=== PATIENT | female | born 1950 | race Caucasian/White ===

== ENCOUNTER 2022-07-24 02:54 | Observation (INO) | payer MEDICARE, BC, SELFPAY ==
[2022-07-24] VITALS (9 sets, daily range): BP systolic 129–217; BP diastolic 68–122; PULSE 63–90; RESP 16–34; TEMP 36.4–36.6; O2SAT 87–99; BMI 18.6
--- NOTE | 2022-07-24 03:03 | ECG_ITS ---
[facility] Test Date: 2022-07-24 Pat Name: Pau Grant Department: Room: Gender: Female Production Editor: : 1950 Requested By: Jamie Wilson Order Number: [id number] Mena MD: Murali Tello M.D. Measurements Intervals [place] Rate: 81 P: 79 LA: 124 QRS: 66 QRSD: 102 T: 66 QT: 389 QTc: 452 Interpretive Statements SINUS RHYTHM POSSIBLE LEFT ATRIAL ENLARGEMENT [-0.1mV P-WAVE IN V1/V2] MODERATE ST DEPRESSION [0.05+ mV ST DEPRESSION] No previous ECG available for comparison Electronically Signed On 07-25-2022 22:03:57 CDT by Murali Tello M.D. [email or web address]
--- NOTE | 2022-07-24 03:04 | XRR_ITS ---
PROCEDURE INFORMATION: Exam: XR Chest Exam date and time: 07/24/2022 3:08 AM Age: 71 years old Clinical indication: Shortness of breath; Patient HX: C/O SOB with cough and chest discomfort. Recent hospitilization for chf at outside facility. TECHNIQUE: Imaging protocol: Radiologic exam of the chest. Views: 1 view. COMPARISON: No relevant prior studies available. FINDINGS: Lungs: Unremarkable. No consolidation. Pleural spaces: Unremarkable. No pleural effusion. No pneumothorax. Heart/Mediastinum: Unremarkable. No cardiomegaly. Bones/joints: Unremarkable. XR/XR chest 1V portable [id number] IMPRESSION: No acute findings.
[2022-07-24 03:12] LABS: Basophils # 0.1 10^3/uL (0.0-0.1); Basophils % 0.6 %; Hematocrit 46.7 % (37.0-47.0); Hemoglobin 15.6 g/dL (11.5-15.3); Lymphocytes # 4.3 10^3/uL (0.8-4.8); Lymphocytes % 27.1 %; Mean Corpuscular HGB Conc 33.4 g/dL (30.0-36.0); Mean Corpuscular Hemoglobin 31.5 pg (28.0-34.0); Mean Corpuscular Volume 94.3 fl (81-99); Mean Platelet Volume 11.1 fL (7.4-10.4); Monocytes # 1.4 10^3/uL (0.2-0.9); Monocytes % 9.1 %; Neutrophils # 6.92 10^3/uL (1.8-7.7); Neutrophils % 43.5 %; Nucleated Red Blood Cells % 0 %; Platelet Count 275 10^3/cmm (130-400); Red Blood Count 4.95 10^6/uL (4.1-5.3); Red Cell Distribution Width 12.7 % (12.1-15.1); White Blood Count 15.9 10^3/uL (4.0-10.0)
[2022-07-24] MEDS: FUROsemide 10 mg/mL SDV 4mL 40 MG IVP (03:12)
[2022-07-24] MEDS: magnesium sulfate premix 2 GM/50 ML PIGGYBACK IV (03:12)
[2022-07-24] MEDS: ipratropium-albuterol 3 mL Neb INHALATION ×3 (03:16→12:20)
[2022-07-24 03:26] LABS: ABG PCO2 43.8 mmHg (35-45); ABG PH Result 7.41 (7.35-7.45); Arterial Blood Gas Hematocrit 47.2 % (37-47); Base Excess ABG 2.8 mmol/L (-2.0-2.0); Blood Gas Allen Test Pos; Blood Gas Sample Type Arterial; Carboxyhemoglobin 1.4 %THgb (0.4-20.1); HGB O2 Sat 92.6 % (95-100); Methemoglobin 0.7 % (0.4-1.5); PO2 ABG 68.4 mmHg (80.0-100.0); Total Hemoglobin 15.4 g/dL (12-16)
[2022-07-24 03:27] LABS: Blood Gas Operator Identificat MONRO; Blood Gas Sample Site Radial, left; Oxygen Device NC
[2022-07-24 03:33] LABS: Lactic Sepsis W/Reflex 1.1 mmol/L (0.5-2.2)
[2022-07-24 03:42] LABS: Alanine Aminotransferase 20 U/L (0-33); Albumin Level 4.4 g/dL (3.5-5.2); Alkaline Phosphatase 86 U/L (35-105); Anion Gap 14.2 (5-19); Aspartate Amino Transferase 21 U/L (0-32); Blood Urea Nitrogen 12 mg/dL (8-23); Calcium 9.8 mg/dL (8.5-10.5); Carbon Dioxide 27 mmol/L (22-29); Chloride 98 mmol/L (98-107); Globulin 2.9 g/dL (1.3-4.6); Glomerular Filtration Rate 98.8 mL/min (90-130); Glucose 127 mg/dL (65-115); Magnesium 2.1 mg/dL (1.7-2.3); NT Pro B Type Natriuretic Pept 133 pg/mL (0-125); Osmolality Calculated 283 mOsm/kg (285-295); Potassium 3.2 mmol/L (3.5-5.1); Sodium 136 mmol/L (136-145); Total Bilirubin 0.6 mg/dL (0.15-1.2); Total Protein 7.3 g/dL (6.6-8.7)
--- NOTE | 2022-07-24 04:09 | ED_ITS ---
HPI - SOB/Dyspnea General: Chief Complaint: Shortness of Breath/Dyspnea Stated Complaint: sob Time Seen by Provider: 07/24/22 03:02 Source: patient History of Present Illness: HPI Narrative: 71-year-old female with a history of COPD. She presents in respiratory distress. She is visiting from [place] this weekend because of a wedding. She began to get short of breath earlier in the evening, and it progressively worsened. She has been coughing. No significant sputum production. No fever. She had been hospitalized in [facility] which is her home last week for similar symptoms. She was placed on albuterol, prednisone, and some other medications. She just finished her prednisone. She does not normally use oxygen. MD elicited complaint: shortness of breath and cough Pertinent past history: COPD and congestive heart failure Context: recent illness Timing: constant and progressively worsening Severity: severe Exacerbating factors: lying flat and exertion Relieving factors: oxygen Known history of: COPD and congestive heart failure Associated symptoms: Reports chest congestion, cough and dizziness; Deny abdominal pain, chest pain, fever(s), nausea or vomiting Treatment prior to arrival: bronchodilator Review of Systems Const: Denies: fever(s) Card: Denies: chest pain Resp: Reports: dyspnea, non-productive cough, wheezing and chest congestion GI: Denies: abdominal pain, nausea or vomiting Neuro: Reports: dizziness Physical Exam Const: GENERAL APPEARANCE: cooperative, in distress, ill appearing and frail appearing HENMT: COMMON NORMALS: normocephalic, atraumatic and Normal external nose present HEAD & SCALP: normocephalic and atraumatic NOSE: Normal external nose present Eye: COMMON NORMALS: Equal, round and reactive pupils present and EOMs intact bilaterally PUPIL: Yes Equal, round and reactive pupils present Chest: CHEST: Yes Symmetrical chest wall rise Resp: EFFORT & INSPECTION: Yes respiratory distress, Yes pursed lip breathing and Yes uses accessory muscles AUSCULTATION: wheezes and diminished lung sounds Cardio: COMMON NORMALS: regular rate and regular rhythm RATE: regular rate RHYTHM: regular rhythm GI: COMMON NORMALS: Normal to inspection, nondistended, normoactive bowel sounds present and Soft to palpation PALPATION: Yes Soft to palpation Extremity: COMMON NORMALS: no pedal edema Neuro: SHANTA COMA SCALE: document GCS findings Shanta coma scale eye opening: Spontaneous Shanta coma scale verbal response: Orientated Shanta coma scale motor response: Obey commands [place] coma scale total score: 15 Psych: COMMON NORMALS: mental status grossly normal and cooperative Course Vital Signs: Vital signs: Vital Signs Temperature 97.9 F 07/24/22 03:03 Pulse Rate 69 07/24/22 03:38 Respiratory Rate 21 H 07/24/22 03:38 Blood Pressure 137/71 07/24/22 03:38 Pulse Oximetry 93 07/24/22 03:38 Oxygen Delivery Me thod 07/24/22 03:38 Oxygen Flow Rate 4 07/24/22 03:38 MDM - SOB/Dyspnea Medical Decision Making 71-year-old female with acute COPD exacerbation. On room air, she was in the mid 80s, breathing 40 times a minute on arrival. She sounded very tight and wheezy. She was placed on oxygen, given magnesium, steroids, and nebulizer treatment with improvement. She still oxygen dependent. Her saturations 92%. Blood pressure 137/62. Originally she was quite hypertensive at 217 systolic. Her white blood cell count is 16. Hemoglobin 15. Chest x-ray shows emphysematous changes, but without infiltrate. She will be observed for COPD exacerbation. Hospitalist is aware and will see patient in the ER. Lab Data : 07/24/22 03:06 07/24/22 03:06 Labs/Radiology: Laboratory Results WBC 15.9 10^3/uL (4.0-10.0) H 07/24/22 03:06 RBC 4.95 10^6/uL (4.1-5.3) 07/24/22 03:06 Hgb 15.6 g/dL (11.5-15.3) H 07/24/22 03:06 Hct 46.7 % (37.0-47.0) 07/24/22 03:06 MCV 94.3 fl (81-99) 07/24/22 03:06 MCH 31.5 pg (28.0-34.0) 07/24/22 03:06 MCHC 33.4 g/dL (30.0-36.0) 07/24/22 03:06 RDW 12.7 % (12.1-15.1) 07/24/22 03:06 Plt Count 275 10^3/cmm (130-400) 07/24/22 03:06 MPV 11.1 fL (7.4-10.4) H 07/24/22 03:06 Neut % (Auto) 43.5 % 07/24/22 03:06 Lymph % (Auto) 27.1 % 07/24/22 03:06 [place] % (Auto) 9.1 % 07/24/22 03:06 Eos % (Auto) 19.0 % 07/24/22 03:06 Baso % (Auto) 0.6 % 07/24/22 03:06 Neut # (Auto) 6.92 10^3/uL (1.8-7.7) 07/24/22 03:06 Lymph # (Auto) 4.3 10^3/uL (0.8-4.8) 07/24/22 03:06 [place] # (Auto) 1.4 10^3/uL (0.2-0.9) H 07/24/22 03:06 Eos # (Auto) 3.0 10^3/uL (0.0-0.8) H 07/24/22 03:06 Baso # (Auto) 0.1 10^3/uL (0.0-0.1) 07/24/22 03:06 Nucleated RBC % (auto) 0 % 07/24/22 03:06 Nucleated RBCs # 0.0 /100WBC 07/24/22 03:06 Specimen Type Arterial 07/24/22 03:14 Sample Site Radial, left 07/24/22 03:14 ABG pH 7.41 (7.35-7.45) 07/24/22 03:14 ABG pCO2 43.8 mmHg (35-45) 07/24/22 03:14 ABG pO2 68.4 mmHg (80.0-100.0) L 07/24/22 03:14 ABG HCO3 28.0 mmol/L (22-26) H 07/24/22 03:14 ABG Base Excess 2.8 mmol/L (-2.0-2.0) H 07/24/22 03:14 Douglas Test Pos 07/24/22 03:14 Hematocrit 47.2 % (37-47) H 07/24/22 03:14 Hgb O2 Saturation 92.6 % (95-100) L 07/24/22 03:14 Carboxyhemoglobin 1.4 %THgb (0.4-20.1) 07/24/22 03:14 Methemoglobin 0.7 % (0.4-1.5) 07/24/22 03:14 Total Hemoglobin 15.4 g/dL (12-16) 07/24/22 03:14 O2 Delivery Device Nc 07/24/22 03:14 O2 Liters/Min 3.0 % 07/24/22 03:14 FiO2 32.0 % 07/24/22 03:14 Sales Promotion Representative ID Omid 07/24/22 03:14 Sodium 136 mmol/L (136-145) 07/24/22 03:06 Chloride 98 mmol/L (98-107) 07/24/22 03:06 Carbon Dioxide 27 mmol/L (22-29) 07/24/22 03:06 Anion Gap 14.2 (5-19) 07/24/22 03:06 BUN 12 mg/dL (8-23) 07/24/22 03:06 Creatinine 0.6 mg/dL (0.5-0.9) 07/24/22 03:06 GFR Calculation 98.8 mL/min (90-130) 07/24/22 03:06 Lactic Acid 1.1 mmol/L (0.5-2.2) 07/24/22 03:06 Calcium 9.8 mg/dL (8.5-10.5) 07/24/22 03:06 Magnesium 2.1 mg/dL (1.7-2.3) 07/24/22 03:06 Total Bilirubin 0.6 mg/dL (0.15-1.2) 07/24/22 03:06 AST 21 U/L (0-32) 07/24/22 03:06 ALT 20 U/L (0-33) 07/24/22 03:06 Alkaline Phosphatase 86 U/L (35-105) 07/24/22 03:06 Total Protein 7.3 g/dL (6.6-8.7) 07/24/22 03:06 Albumin 4.4 g/dL (3.5-5.2) 07/24/22 03:06 Globulin 2.9 g/dL (1.3-4.6) 07/24/22 03:06 Discharge Plan Discharge Patient Disposition: Placed in Observation Clinical Impression: Acute exacerbation of chronic obstructive airways disease Coding Level of Care Code ED Live Source Operator for Chg Fwd
--- NOTE | 2022-07-24 04:41 | P.HP_ITS ---
Providers/Chief Complaint Chief Complaint: sob History of Present Illness Pau Grant is a 71 year old female with past medical history of COPD not on home oxygen came in today with chief complaint of worsening shortness of breath, nonproductive cough, started yesterday morning and since then it has progressively worsened, she denies chest pain, fever, nausea vomiting, headache. she was admitted recently with similar complaints and was treated with nebs, steroids, she completed 5-day course of oral steroids as outpatient. X-ray chest done in the ER: No acute infiltrates, no pneumothorax no effusion changes consistent with COPD. Pertinent labs: WBC 15.9, H&H 15 and 46, PLT : 275 , sodium 136 potassium 3.2, BUN serum creatinine 12/ 0.6 , proBNP 133 Patient received steroids, nebs in the ER Review of Systems General: Reports: 10 or more systems reviewed and unremarkable except in HPI and below Const: Denies: fever(s), chills, body aches, change in appetite or diaphoresis Card: Denies: palpitations, edema, swelling of feet/ankles or leg pain with exertion Resp: Reports: dyspnea and wheezing; Denies: pain on inspiration GI: Denies: abdominal pain, nausea, vomiting, diarrhea or constipation : Denies: flank pain Musc: Denies: back pain, extremity pain or extremity swelling Neuro: Denies: headache(s), difficulty walking or confusion Medications/Allergies Allergies Allergy/AdvReac Type Severity Reaction Status Date / Time Unable to Assess Allergy Unverified 07/24/22 03:03 Vitals/I&O/Wt Last Vital Signs Temp 97.9 F 07/24/22 03:03 Pulse 69 07/24/22 03:38 Resp 21 H 07/24/22 03:38 BP 137/71 07/24/22 03:38 Pulse Ox 93 07/24/22 03:38 O2 Del Method 07/24/22 03:38 O2 Flow Rate 4 07/24/22 03:38 Weight last 48 hrs Weight 52.163 kg Physical Exam Const: COMMON NORMALS: patient oriented x3 Resp: EFFORT & INSPECTION: Yes symmetric chest movement Cardio: COMMON NORMALS: regular rate, regular rhythm, S1 normal heart sound present, S2 normal heart sound present, No gallops present (Cardio), No murmurs present (Cardio), No rub (Cardio) and Peripheral pulses 2+ throughout RATE: regular rate RHYTHM: regular rhythm HEART SOUNDS: S1 normal heart sound present and S2 normal heart sound present PERIPHERAL PULSES: Peripheral pulse s 2+ throughout GI: COMMON NORMALS: Normal to inspection, nondistended, normoactive bowel sounds present, Soft to palpation, non-tender, No hepatosplenomegaly present and no masses AUSCULTATION: Yes normoactive bowel sounds PALPATION: Yes Soft to palpation and Yes No hepatosplenomegaly present RECTAL EXAM: deferred Extremity: COMMON NORMALS: no clubbing, cyanosis or edema and no pedal edema Neuro: COMMON NORMALS: patient oriented x3 Data : 07/24/22 03:06 07/24/22 03:06 A&P Assessment and plan (1) Acute exacerbation of chronic obstructive airways disease: (2) Leukocytosis: (3) Hypokalemia: (4) Hypoxia: Plan 71 year old female with past medical history of COPD not on home oxygen came in today with chief complaint of worsening shortness of breath, nonproductive cough, started yesterday morning. Assessment: COPD exacerbation Leukocytosis likely secondary to recent steroid use Hypokalemia Hypoxia Plan: Continue DuoNebs Continues to Solu-Medrol Supplemental oxygen as needed CODE STATUS: Full code DVT prophylaxis: On Lovenox Attestations Medical Necessity Statement*: Patient needs to be in hospital management of COPD exacerbation. Time Spent in Patient Care: Greater than 35 minutes (>than 50% of time spent in counselling and/or direct pt care on unit) . Coding Level of Care Code Acute Sales Service Promoter for Will Fwd Exam Detailed Diagnoses Acute exacerbation of chronic obstructive airways disease J44.1 Leukocytosis D72.829 Hypokalemia E87.6 Hypoxia R09.02
[2022-07-24 05:05] LABS: Adenovirus Not Detected (NOT DETECT); Chlamydia Pneumoniae Not Detected (NOT DETECT); Coronavirus 229E,HKU1,NL63,OC4 Not Detected (NOT DETECT); Human Metapneumovirus Not Detected (NOT DETECT); Human Rhinovirus/Enterovirus Not Detected (NOT DETECT); Influenza A Not Detected (NOT DETECT); Influenza A H1 Not Detected (NOT DETECT); Influenza A H1-2009 Not Detected (NOT DETECT); Influenza A H3 Not Detected (NOT DETECT); Influenza B Not Detected (NOT DETECT); Mycoplasma Pneumoniae Not Detected (NOT DETECT); Parainfluenza Virus Type 1 Not Detected (NOT DETECT); Parainfluenza Virus Type 2 Not Detected (NOT DETECT); Parainfluenza Virus Type 3 Not Detected (NOT DETECT); Parainfluenza Virus Type 4 Not Detected (NOT DETECT); Respiratory Syncytial Virus A Not Detected (NOT DETECT); Respiratory Syncytial Virus B Not Detected (NOT DETECT); SARS-COV-2 Not Detected (NOT DETECT)
[2022-07-24] MEDS: potassium chloride ER 20 mEq Tablet PO (05:23)
[2022-07-24] MEDS: losartan 50 mg Tablet 25 MG PO (11:48)
[2022-07-24] MEDS: amlodipine 5 mg Tablet PO (11:48)
--- NOTE | 2022-07-24 12:18 | P.DS_ITS ---
Discharge Providers Date of Admission: 07/24/22 04:52 Date of Discharge: July 24, 2022 Attending Provider at Admission: Sam Jeffrey MD Attending Provider at Discharge: Sylvia Bowman MD Diagnoses at Discharge Discharge Diagnosis (1) Acute exacerbation of chronic obstructive airways disease: Status: Acute (2) Leukocytosis: Status: Acute (3) Hypokalemia: Status: Acute (4) Hypoxia: Status: Acute Reason for Visit Reason for Visit: sob Brief History: Pau Grant is a 71 year old female with past medical history of COPD not on home oxygen came in today with chief complaint of worsening shortness of breath, nonproductive cough, started yesterday morning and since then it has progressively worsened, she denies chest pain, fever, nausea vomiting, headache. she was admitted recently with similar complaints and was treated with nebs, steroids, she completed 5-day course of oral steroids as outpatient. X-ray chest done in the ER: No acute infiltrates, no pneumothorax no effusion changes consistent with COPD. Pertinent labs: WBC 15.9, H&H 15 and 46, PLT : 275 , sodium 136 potassium 3.2, BUN serum creatinine 12/ 0.6 , proBNP 133 Patient received steroids, nebs in the ER Hospital Course Hospital Course Patient admitted for presumed COPD exacerbation. She was recently in the hospital for 1 and was treated with 5 days of steroids. She had recent COVID. Patient stated that she took her albuterol inhaler and felt that she had air hunger. In the ER she received Solu-Medrol and was placed on Solu-Medrol 60 twice daily. Today when seen she was asymptomatic and said that she was back to normal. Normally she says she takes albuterol before she exercises. She is very active and exercises 3 times a week. She did have PFTs done early this year in January which showed mild COPD/emphysema. She has been not on any other medications at home. She states she is struggled with high blood pressure for a long time and finally her blood pressure has been stable with the losartan and amlodipine that was given to her. 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 She said that she is allergic to a lot of medications and would not like to be on any new meds without consultation with her primary care provider at this time. Patient agreed to take prednisone as an outpatient and albuterol inhaler and Spiriva at this time. Home oxygen evaluation was done and she does not qualify for any oxygen at this time. She also stated that if she had qualified for oxygen she would not be interested taking at home. Patient stated that she would like to see her primary care doctor on Tuesday and will discuss further medication changes. In the meantime I will place her on a prednisone taper. Patient requested to be discharged home. Both of her daughters were present at bedside. She was asymptomatic. She denied cough, increased sputum or change in color of sputum or have any sputum at all at this time. She possibly had bronchospasm secondary to anxiety at the time when she presented to the ER. All questions were answered. Discharge I spent greater than 20 minutes with patient and her family today at bedside and answered all her questions. Patient will be discharged home in stable condition. Patient on room air. Mild leukocytosis most likely secondary to recent steroid use. She was afebrile no signs of infection. Patient will return to ER if she worsens for any symptoms started. Physical Exam Narrative: General: Alert oriented x3, patient seen sitting up in bed appearing comfortable at this time. HEENT: Normocephalic, atraumatic, EOMI, breathing normally, no acute distress Cardio: Regular rate rhythm, normal S1-S2, Respiratory: Good bilateral air entry, no wheezes no rhonchi appreciated, clear to auscultation GI: Abdomen soft, nontender, nondistended, bowel sounds + Behavior: Appropriate and cooperative Extremities: No lower extremity edema Discharge Data Studies Completed and Pending Completed Studies During Hospitalization Category Date Time Status XR chest 1V portable [id number] Stat Exams 07/24/22 03:04 Completed Pending at discharge Category Date Time Status Basic Metabolic Panel AM LABS Lab 07/25/22 04:00 Ordered Basic Metabolic Panel AM LABS Lab 07/26/22 04:00 Ordered Basic Metabolic Panel AM LABS Lab 07/27/22 04:00 Ordered Blood Culture Stat Lab 07/24/22 07:45 Results Complete Blood Count w/Auto AM LABS Lab 07/25/22 04:00 Ordered Complete Blood Count w/Auto AM LABS Lab 07/26/22 04:00 Ordered Complete Blood Count w/Auto AM LABS Lab 07/27/22 04:00 Ordered Procalcitonin AM LABS Lab 07/25/22 04:00 Ordered Radiology Impressions Chest X-Ray 07/24/22 03:04 IMPRESSION: No acute findings. Laboratory Results WBC 15.9 10^3/uL (4.0-10.0) H 07/24/22 03:06 RBC 4.95 10^6/uL (4.1-5.3) 07/24/22 03:06 Hgb 15.6 g/dL (11.5-15.3) H 07/24/22 03:06 Hct 46.7 % (37.0-47.0) 07/24/22 03:06 MCV 94.3 fl (81-99) 07/24/22 03:06 MCH 31.5 pg (28.0-34.0) 07/24/22 03:06 MCHC 33.4 g/dL (30.0-36.0) 07/24/22 03:06 RDW 12.7 % (12.1-15.1) 07/24/22 03:06 Plt Count 275 10^3/cmm (130-400) 07/24/22 03:06 MPV 11.1 fL (7.4-10.4) H 07/24/22 03:06 Neut % (Auto) 43.5 % 07/24/22 03:06 Lymph % (Auto) 27.1 % 07/24/22 03:06 [place] % (Auto) 9.1 % 07/24/22 03:06 Eos % (Auto) 19.0 % 07/24/22 03:06 Baso % (Auto) 0.6 % 07/24/22 03:06 Neut # (Auto) 6.92 10^3/uL (1.8-7.7) 07/24/22 03:06 Lymph # (Auto) 4.3 10^3/uL (0.8-4.8) 07/24/22 03:06 [place] # (Auto) 1.4 10^3/uL (0.2-0.9) H 07/24/22 03:06 Eos # (Auto) 3.0 10^3/uL (0.0-0.8) H 07/24/22 03:06 Baso # (Auto) 0.1 10^3/uL (0.0-0.1) 07/24/22 03:06 Nucleated RBC % (auto) 0 % 07/24/22 03:06 Nucleated RBCs # 0.0 /100WBC 07/24/22 03:06 Specimen Type Arterial 07/24/22 03:14 Sample Site Radial, left 07/24/22 03:14 ABG pH 7.41 (7.35-7.45) 07/24/22 03:14 ABG pCO2 43.8 mmHg (35-45) 07/24/22 03:14 ABG pO2 68.4 mmHg (80.0-100.0) L 07/24/22 03:14 ABG HCO3 28.0 mmol/L (22-26) H 07/24/22 03:14 ABG Base Excess 2.8 mmol/L (-2.0-2.0) H 07/24/22 03:14 Douglas Test Pos 07/24/22 03:14 Hematocrit 47.2 % (37-47) H 07/24/22 03:14 Hgb O2 Saturation 92.6 % (95-100) L 07/24/22 03:14 Carboxyhemoglobin 1.4 %THgb (0.4-20.1) 07/24/22 03:14 Methemoglobin 0.7 % (0.4-1.5) 07/24/22 03:14 Total Hemoglobin 15.4 g/dL (12-16) 07/24/22 03:14 O2 Delivery Device Nc 07/24/22 03:14 O2 Liters/Min 3.0 % 07/24/22 03:14 FiO2 32.0 % 07/24/22 03:14 Production Sound Mixer ID [place] 07/24/22 03:14 Sodium 136 mmol/L (136-145) 07/24/22 03:06 Potassium 3.2 mmol/L (3.5-5.1) L 07/24/22 03:06 Chloride 98 mmol/L (98-107) 07/24/22 03:06 Carbon Dioxide 27 mmol/L (22-29) 07/24/22 03:06 Anion Gap 14.2 (5-19) 07/24/22 03:06 BUN 12 mg/dL (8-23) 07/24/22 03:06 Creatinine 0.6 mg/dL (0.5-0.9) 07/24/22 03:06 GFR Calculation 98.8 mL/min (90-130) 07/24/22 03:06 Glucose 127 mg/dL (65-115) H 07/24/22 03:06 Calculated Osmolality 283 mOsm/kg (285-295) L 07/24/22 03:06 Lactic Acid 1.1 mmol/L (0.5-2.2) 07/24/22 03:06 Calcium 9.8 mg/dL (8.5-10.5) 07/24/22 03:06 Magnesium 2.1 mg/dL (1.7-2.3) 07/24/22 03:06 Total Bilirubin 0.6 mg/dL (0.15-1.2) 07/24/22 03:06 AST 21 U/L (0-32) 07/24/22 03:06 ALT 20 U/L (0-33) 07/24/22 03:06 Alkaline Phosphatase 86 U/L (35-105) 07/24/22 03:06 NT-Pro-B Natriuret Pep 133 pg/mL (0-125) H 07/24/22 03:06 Total Protein 7.3 g/dL (6.6-8.7) 07/24/22 03:06 Albumin 4.4 g/dL (3.5-5.2) 07/24/22 03:06 Globulin 2.9 g/dL (1.3-4.6) 07/24/22 03:06 Coronavirus 229E (PCR) Not detected (NOT DETECT) 07/24/22 03:20 SARS-CoV-2 (PCR) Not detected (NOT DETECT) 07/24/22 03:20 Vitals Last Vital Signs Temp 97.6 F 07/24/22 11:22 Pulse 69 07/24/22 11:22 Resp 18 07/24/22 11:22 BP 129/68 07/24/22 11:22 Pulse Ox 92 07/24/22 11:29 O2 Del Method 07/24/22 11:22 O2 Flow Rate 3 07/24/22 11:22 Discharge Plan Discharge Patient Disposition: Home Condition: Stable Prescriptions: New prednisone 10 mg tablet See Rx Instructions .ROUTE .COMPLEX Qty: 14 0RF Rx Instructions: Start 07/25 take 40 mg for 2 days 20 mg for 2 days 10 mg for 2 days then stop Spiriva Respimat 2.5 mcg/actuation mist 2 inh inhalation DAILY 30 Days Qty: 4 0RF Continued amlodipine 5 mg Tablet 5 mg PO BID pantoprazole 40 mg Tablet,Delayed Release (Dr/Ec) 40 mg PO DAILY losartan 25 mg Tablet 25 mg PO DAILY furosemide 20 mg Tablet 40 mg PO DAILY PRN (Reason: Edema) multivitamin Tablet 1 tab PO DAILY albuterol sulfate 90 mcg/actuation Hfa Aerosol Inhaler 2 puff INHALATION Q6H PRN (Reason: Shortness Of Breath Or Wheezing) Discharge Orders: Discharge Order (Routine); Ordered 07/24/22 Ordered By: Sylvia Bowman Referrals: Lalo Suárez MD [Referring] - 7-10 days (Please call Tuesday to make your follow up appointment within 7-10 days of discharge. ) Discharge Diet: Low Salt Discharge Activity: Resume usual activity Patient Instructions: Prednisone (By mouth), Tiotropium (By breathing) (Spiriva, Spiriva Respimat), COPD (Chronic Obstructive Pulmonary Disease) (DC), Opioid Safety Activity Restrictions/Additional Instructions: Please follow-up with your primary care doctor on Tuesday as previously scheduled. I have placed you on a steroid taper. Please take 40 mg of prednisone for next 2 days. Then drop the dose to 20 mg for 2 days, thereafter 10 mg daily for 2 days and then stop. Start this regimen tomorrow. You have received IV steroids today. If your symptoms worsen please return to the ER. We did a home oxygen evaluation with you today and you did not qualify for home oxygen at this time. Discharge Attestations Time Spent in Discharge Care*: greater than 30 min Quality Metrics Clinical Quality Measures [ No reported AMI, CVA or VTE this stay] Coding Level of Care Code Acute Chg FW DC note Diagnoses Acute exacerbation of chronic obstructive airways disease J44.1 Leukocytosis D72.829 Hypokalemia E87.6 Hypoxia R09.02
== END 2022-07-24 13:17 | disposition home or self-care (01) ==
LOC: ER 04:12 → MEDSURG 04:53
PROVIDERS: Admitting Provider Internal Medicine; Emergency Provider Emergency Medicine; Visit Provider Internal Medicine
DX: J44.1 Chronic obstructive pulmonary disease with (acute) exacerbation (principal); D72.829 Elevated white blood cell count, unspecified; E87.6 Hypokalemia; R09.02 Hypoxemia
CPT/HCPCS: 36415; 36600; 71045; 80053; 82805; 83605; 83735; 83880; 85025; 87040; 87635; 93005; 94640; 94760; 96374; 96375; 96376; 99285; G0378; J1940; J2930; J3475